=== PATIENT | female | born 1955 | race Hispanic/Latino ===

== ENCOUNTER 2016-10-04 08:20 | Day surgery (SDC) | payer OTHER ==
[2016-10-04] MEDS ORDERED: PLAVIX PO ONE (09:20)
[2016-10-04] MEDS ORDERED: ECOTRIN PO ONE (09:21)
[2016-10-04 09:26] LABS: Basophils % (Auto) 0.7 % (0.0-1.8); Eosinophils % (Auto) 0.9 % (0.0-4.3); Hematocrit 32.5 % (30.3-42.9); Hemoglobin 10.1 gm/dl (10.1-14.3); Mean Corpuscular HGB Conc 31 % (30-34); Mean Corpuscular Volume 78 fl (79-97); Platelet Count 156 K/mm3 (140-440); Red Blood Count 4.19 M/mm3 (3.65-5.03); Red Cell Distribution Width 18.8 % (13.2-15.2); White Blood Count 7.8 K/mm3 (4.5-11.0)
[2016-10-04 09:30] LABS: Mean Corpuscular Hemoglobin 24 pg (28-32)
[2016-10-04 09:45] LABS: INR 1.18 (0.87-1.13)
[2016-10-04 09:56] LABS: Blood Urea Nitrogen 20 mg/dL (7-17); Calcium 9.2 mg/dL (8.4-10.2); Carbon Dioxide 27 mmol/L (22-30); Chloride 99.9 mmol/L (98-107); Glucose 205 mg/dL (65-100); Potassium 4.3 mmol/L (3.6-5.0); Sodium 141 mmol/L (137-145)
[2016-10-04] MEDS ORDERED: NACL 0.9% 500 ML 500 ML IV SCH (10:00)
[2016-10-04 10:09] LABS: Anion Gap 18 mmol/L
[2016-10-04] MEDS ORDERED: HEPARIN/NS 5000 UNIT/500ML(CATH LAB) 1,000 ML IR ONE (11:23)
[2016-10-04] MEDS ORDERED: VERSED ONE (11:24)
[2016-10-04] MEDS ORDERED: XYLOCAINE 2% INFILTRATI ONE (11:24)
[2016-10-04] MEDS ORDERED: SUBLIMAZE ONE (11:24)
[2016-10-04] MEDS ORDERED: HEPARIN 10,000 UNITS/10 ML ONE (11:24)
[2016-10-04] MEDS ORDERED: NITROGLYCERIN SYRINGE 0 ML ONE (11:24)
[2016-10-04] MEDS ORDERED: CALAN ONE (11:24)
[2016-10-04] MEDS ORDERED: ZOFRAN ONE (11:50)
--- NOTE | 2016-10-04 12:24 | Short Stay Summary ---
Short Stay Documentation Date of service: 10/04/16 - History H&P: obtained from office - Allergies and Medications Current Medications: Allergies niacin Adverse Reaction (Severe, Verified 02/10/14 07:54) RASH,ITCHING, FLUSHED SKIN sulfamethoxazole [From Bactrim] Adverse Reaction (Severe, Verified 02/10/14 07: 54) UPSET STOMACH trimethoprim [From Bactrim] Adverse Reaction (Severe, Verified 02/10/14 07:54) UPSET STOMACH diclofenac sodium [From Voltaren] Adverse Reaction (Intermediate, Verified 02/10 07:54) WHELPS,ITCHING ,RASH Home Medications Medication Instructions Recorded Confirmed Last Taken Type Allopurinol [Allopurinol] 300 mg PO DAILY 02/10/14 10/04/16 10/03/16 History Aspirin [Aspirin] 325 mg PO DAILY 02/10/14 10/04/16 10/04/16 09:44 History Bumetanide [Bumex] 2 mg PO DAILY 02/10/14 10/04/16 10/03/16 History Citalopram Hydrobromide 5 mg PO DAILY 02/10/14 10/04/16 10/03/16 History [Citalopram HBr] Clopidogrel Bisulfate [Clopidogrel] 75 mg PO DAILY 02/10/14 10/04/16 10/04/16 09 :44 History Isosorbide Mononitrate [Isosorbide 15 mg PO DAILY 02/10/14 10/04/16 10/03/16 History Mononitrate ER (IMDUR)] Metoprolol Tartrate [Metoprolol 50 mg PO BID 02/10/14 10/04/16 10/03/16 History Tartrate] Potassium Chloride [Klor-Con M20] 20 meq PO DAILY 02/10/14 10/04/16 10/03/16 History glyBURIDE/METFORMIN HCL 2 tab PO BID 02/10/14 10/04/16 10/03/16 History [Glyburide-Metformin 2.5-500 mg] Canagliflozin [Invokana] 300 mg PO DAILY 08/12/15 10/04/16 10/03/16 History Thyroid,Pork [[place] Thyroid] 15 mg PO QDAY 08/12/15 10/04/16 10/03/16 History Colchicine [Colcrys] 0.6 mg PO PRN PRN 09/02/15 10/04/16 1 Year Ago History Hydroxyzine HCl 25 mg PO TID PRN 09/02/15 10/04/16 6 Months Ago History Hyoscyamine Sulfate [Hyoscyamine 0.125 mg PO PRN PRN 09/02/15 10/04/16 1 Year Ago History Rapdis 0.125 mg] Spironolactone Tab [Aldactone Tab] 25 mg PO DAILY 09/02/15 10/04/16 10/03/16 History Insulin Glargine,Hum.rec.anlog 60 units SQ QHS 10/04/16 10/04/16 10/03/16 History [Lantus Solostar] Liothyronine Sodium 5 mcg PO QDAY 10/04/16 10/04/16 10/03/16 History Pantoprazole [Protonix TAB] 20 mg PO QDAY 10/04/16 10/04/16 10/03/16 History Active Medications Sodium Chloride (Nacl 0.9% 500 Ml) 500 mls @ 50 mls/hr IV DIRECT KERRI Stop: 10/04/16 19:59 Last Admin: 10/04/16 09:41 Dose: 50 mls/hr - Brief post op/procedure progress note Date of procedure: 10/04/16 Pre-op diagnosis: chest pain Post-op diagnosis: same Procedure: see report Anesthesia: local Estimated blood loss: none Pathology: none - Disposition Condition at discharge: Good Disposition: DISCHARGED TO HOME OR SELFCARE - Discharge Diagnoses (1) Abnormal stress test Status: Chronic (2) Chest pain Status: Chronic Qualifiers: Chest pain type: unspecified Qualified Code(s): R07.9 - Chest pain, unspecified (3) CAD (coronary artery disease) Status: Chronic Qualifiers: Coronary Disease-Associated Artery/Lesion type: bypass graft [place] vs. transplanted heart: [place] heart Associated angina: with unstable angina Qualified Code(s): I25.700 - Atherosclerosis of coronary artery bypass graft(s) , unspecified, with unstable angina pectoris (4) Chronic diastolic heart failure Status: Chronic (5) Hx of CABG Status: Chronic (6) Diabetes mellitus Status: Acute Qualifiers: Diabetes mellitus type: type 2 Diabetes mellitus complication status: without complication Diabetes mellitus shelter insulin use: without shelter use Qualified Code(s): E11.9 - Type 2 diabetes mellitus without complications (7) Hyperlipemia, mixed Status: Chronic Short Stay Discharge Plan Activity: advance as tolerated Diet: low fat, low cholesterol, low salt Wound: keep clean and dry Special Instructions: hold Metformin (for two days)
[2016-10-04] MEDS ORDERED: NORCO 5/325 PO ONE (13:08)
--- NOTE | 2016-10-04 13:53 | Cardiac Catherization Report ---
LEFT HEART CATHETERIZATION ORDERING PHYSICIAN: Jaren Lugo MD CLINICAL INFORMATION: This is a 60-year-old female with obesity, has known coronary artery disease limited to LAD, has a stent to the HALE and to the LAD. Catheterization in 2013 showed stent was patent and HALE was patent, presents with still recurrent chest pain and angina classification 3 despite Ranexa, Imdur, beta blockers, and a negative stress test here for a left heart catheterization. Left heart catheterization performed via the right femoral artery, sterile technique, local anesthesia. A 5-[place] groin sheath inserted. Left system engaged with a JL4 catheter. FINDINGS: Left main is a large-caliber vessel, patent, bifurcates into medium-caliber LAD that is patent and mid is 100%, small diagonal 1 that is patent. Circumflex and AV groove is a large caliber vessel, patent, goes into a small to medium caliber OM1 and OM2 with moderate tortuosity, is patent. RCA engaged with JR4 catheter, is a medium caliber vessel that is patent from proximally and distally, moderate tortuosity, goes into small PDA and PLV that are patent. HALE was engaged with an IM catheter. It is medium caliber graft, free of disease at the ostium, body, and ____ stent into the HALE to LAD is patent with mild luminal irregularities and goes into a [id number] caliber LAD that is patent. LV gram done in [place] and [place] view shows normal LV function, LVEDP of ____ mmHg, LV is 140/15, aortic is 139/68. No gradient across the aortic valve on pullback. The 5-[place] catheters were taken over a guidewire, 5-[place] groin sheath was discontinued. Manual pressure held. No hematoma. No bleeding. SUMMARY: Left main patent, circ patent, OM1 and OM2 patent, RCA patent with small PDA and PLV. LAD, mid 100%, competitive flow. HALE to LAD stent is patent with mild luminal irregularities and goes into a small caliber LAD that is patent. No change angiographically from previous cath done in 2013. Discussed in detail with the patient and patient's family. JOB# [id number] CLARA/HERIBERTO CARRILLO
[2016-10-04 16:39] VITALS: BP 108/60
== END 2016-10-04 16:50 | disposition home or self-care (01) ==
LOC: OPU 08:20
PROVIDERS: ATTEND Internal Medicine
DX: I20.8 Other forms of angina pectoris (principal); J45.909 Unspecified asthma, uncomplicated; J44.9 Chronic obstructive pulmonary disease, unspecified; I11.0 Hypertensive heart disease with heart failure; I50.32 Chronic diastolic (congestive) heart failure; Z95.5 Presence of coronary angioplasty implant and graft; Z95.1 Presence of aortocoronary bypass graft; E78.5 Hyperlipidemia, unspecified; G47.33 Obstructive sleep apnea (adult) (pediatric); E66.01 Morbid (severe) obesity due to excess calories; Z68.42 Body mass index [BMI] 45.0-49.9, adult; Z82.49 Family history of ischemic heart disease and other diseases of the circulatory system
CPT/HCPCS: 36415; 80048; 82962; 85025; 85610; 85730; 93005; 93010; 93459; J1644; J2250; J2405; J3010; J7040; Q9967